=== PATIENT | female | born 1990 | race Caucasian/White ===

== ENCOUNTER 2022-01-29 08:15 | Outpatient (CLI) | payer MEDICAID, SELFPAY ==
--- NOTE | 2022-01-29 08:15 | CRLHL7_ITS ---
For Patients: As a result of the Cures Act, medical imaging exams and procedure reports are released immediately into your electronic medical record. You may view this report before your referring provider. If you have questions, please contact your health care provider. INDICATION: First trimester scan, establish dates. COMPARISON: None. TECHNIQUE: Real-time fraga-scale imaging of the pelvis was performed. FINDINGS: Sonographic imaging demonstrates a single living intrauterine gestation. The embryo demonstrates a regular cardiac rate measuring 169 beats per minute. The embryo`s crown-rump length measurement of 1.8 cm corresponds to a gestational age of 8 weeks 2 days with a sonographic due date of 09/08/2022. There is a normal-appearing yolk sac. There are no gross abnormalities noted within the embryo at this early state of development. The gestational sac has a normal appearance. There is no evidence of a perigestational hemorrhage. The amount of fluid within the sac appears appropriate for gestational age. The cervix is closed. The myometrium appears normal. The ovaries are of normal size. There are no suspicious fluid collections noted in the cul-de-sac. Corpus luteal cyst right ovary. IMPRESSION: Normal first trimester OB ultrasound exam. Gestational age calculated at 8 weeks 2 days with a sonographic due date of 09/08/2022. Dictated by Chu Britt MD @ 01/29/2022 8:53:08 AM (Electronically Signed)
== END 2022-01-29 08:16 | disposition home or self-care (01) ==
LOC: US 08:16
PROVIDERS: Visit Provider Advanced Practice Midwife
DX: Z34.91 Encounter for supervision of normal pregnancy, unspecified, first trimester (principal); Z3A.08 8 weeks gestation of pregnancy
CPT/HCPCS: 76817; 86703; 86803; 86850; 86900; 86901; 87086; 87340

== ENCOUNTER 2022-01-29 09:49 | Outpatient (CLI) | payer MEDICAID, SELFPAY ==
[2022-01-29 12:20] LABS: Hepatitis B Surface Antigen* Negative (Negative)
[2022-01-29 12:31] LABS: HIV 1/2/P24 Combo Screen* Negative (Negative)
[2022-01-29 12:38] LABS: Hepatitis C Virus Antibody* Negative (Negative)
[2022-01-30 12:48] LABS: Rapid Plasma Reagin (RPR) Non Reactive (Non Reactive)
[2022-01-30 17:58] LABS: Rubella Antibody IgG 7.4 IU/mL
== END 2022-01-29 09:50 | disposition home or self-care (01) ==
PROVIDERS: Visit Provider Advanced Practice Midwife
DX: Z34.91 Encounter for supervision of normal pregnancy, unspecified, first trimester (principal)
CPT/HCPCS: 86592; 86703; 86762; 86803; 86850; 86900; 86901; 87086; 87340; 87491; 87591

== ENCOUNTER 2022-02-23 16:46 | Outpatient (CLI) | payer MEDICAID, SELFPAY ==
[2022-02-23 22:08] LABS: Chlamydia DNA Amplified* NOT DETECTED (No Detected); GC DNA Amplified* NOT DETECTED (No Detected)
== END 2022-02-23 16:47 | disposition home or self-care (01) ==
LOC: NFLDREF 16:47
PROVIDERS: Visit Provider Advanced Practice Midwife
DX: Z34.91 Encounter for supervision of normal pregnancy, unspecified, first trimester (principal)
CPT/HCPCS: 87491; 87591

== ENCOUNTER 2022-04-20 07:21 | Outpatient (CLI) | payer MEDICAID, SELFPAY ==
--- NOTE | 2022-04-20 07:15 | CRLHL7_ITS ---
For Patients: As a result of the Century Cures Act, medical imaging exams and procedure reports are released immediately into your electronic medical record. You may view this report before your referring provider. If you have questions, please contact your health care provider. INDICATION: Evaluate anatomy. COMPARISON: None. TECHNIQUE: Real time fraga scale imaging of the fetus was performed as well as color Doppler analysis of the umbilical vessels. FINDINGS: Sonographic imaging demonstrates a single living intrauterine gestation. Fetus demonstrates a regular cardiac rate of 150 beats per minute. Fetus has a vertex orientation and longitudinal lie. The placenta lies anteriorly without evidence of placenta previa. Amniotic fluid volume appears normal. Single deepest vertical pocket: 5.8 cm. The cervix is closed and measures 4.7 cm in length. The composite ultrasound gestational age is calculated at 20 weeks 6 days with an estimated sonographic due date of September 01, 2022. The estimated weight is 415 grams which lies at the greater than the 97th percentile. The following biometric measurements were obtained: Biparietal diameter: 4.68 cm/20 weeks 1 day 57% Head circumference: 18.1 cm/20 weeks 4 days 66% Abdominal circumference: 17.3 cm/22 weeks 1 day 96% Femur length: 3.37 cm/20 weeks 4 days 63% The HC/AC ratio measures: 1.05 range (1.06-1.25) On anatomic survey, there is a normal appearance of the cerebral ventricles, cisterna magna and cerebellum. The nose, lips, and facial profile appear normal. The cervical, thoracic and lumbar spine are well visualized and appear normal. There is a normal four-chamber heart view and the left and right ventricular outflow tracts appear normal. diaphragm, stomach, kidneys and bladder appear normal. There is a normal three-vessel cord and cord insertion site. The four extremities appear normal. IMPRESSION: Normal OB ultrasound exam with concordance of clinical and sonographic dating. No intrinsic abnormalities noted on anatomic survey. Dictated by Delmer Caraballo MD @ 04/20/2022 10:56:33 AM (Electronically Signed)
== END 2022-04-20 07:22 | disposition home or self-care (01) ==
PROVIDERS: Visit Provider Advanced Practice Midwife
DX: Z34.92 Encounter for supervision of normal pregnancy, unspecified, second trimester (principal); Z3A.20 20 weeks gestation of pregnancy
CPT/HCPCS: 76805

== ENCOUNTER 2022-06-13 11:22 | Outpatient (CLI) | payer MEDICAID, SELFPAY ==
[2022-06-15 00:52] LABS: Rapid Plasma Reagin (RPR) Non Reactive (Non Reactive)
== END 2022-06-13 11:23 | disposition home or self-care (01) ==
PROVIDERS: Visit Provider Advanced Practice Midwife
DX: Z34.90 Encounter for supervision of normal pregnancy, unspecified, unspecified trimester (principal)
CPT/HCPCS: 86592

== ENCOUNTER 2022-08-09 10:30 | Outpatient (CLI) | payer MEDICAID, SELFPAY ==
[2022-08-10 12:52] LABS: Strep B DNA Probe NEGATIVE (Negative)
[2022-08-10 12:53] LABS: Strep B Pen/Amox Allergy No
== END 2022-08-09 10:31 | disposition home or self-care (01) ==
LOC: NFLDREF 10:30
PROVIDERS: Visit Provider Advanced Practice Midwife
DX: Z34.93 Encounter for supervision of normal pregnancy, unspecified, third trimester (principal); Z3A.35 35 weeks gestation of pregnancy
CPT/HCPCS: 87081; 87653

== ENCOUNTER 2022-08-29 19:07 | Inpatient (IN) | payer MEDICAID, SELFPAY ==
[2022-08-29] VITALS (18 sets, daily range): BP systolic 113–137; BP diastolic 57–83; PULSE 65–81; RESP 20; BMI 30.5
--- NOTE | 2022-08-29 19:44 | W.PM.LDBA ---
Subjective History of Present Illness Date Seen: 08/29/22 Narrative: Lizzeth is being admitted to Labor and Delivery for active labor, she has a history of fast labors. She noticed contractions today at approximately 1815. She is a 32 year old at 38.5weeks gestation. Her full history and physical was dictated by H&P done 08/17 by Thien Oneal CNM. 1. Hx precipitous deliveries. She may consider an IOL. -IOL scheduled 09/03 2. Anxiety - on Lexapro, increased with (trying to get into therapy). 3. Closely spaced pregnancies (last delivery 05/30/21) 4. Hx macrosomia (9lb, 9lb8oz, and 9lb6oz), delivered without difficulty OB - Problem Based A/P Additional Plan (1) 38 weeks gestation of : Status: Acute (2) Pain during labor: Status: Acute Plan at 38.5 weeks gestation? GBS Negative? Uncomplicated ? ?? PLAN:? 1. Desires water . Consent signed. Hep C negative.? 2. Candidate for analgesia of choice. Planning unmedicated .? 3. Anticipate ? 4. Expectant management at this time.? 5. No IV at this time, intermittent monitoring after initial NST Delivery/Labor/Induction Plan Plan: expectant management OB Exam Physical Exam Vital signs: Pulse BP 77 126/72 08/29/22 19:32 08/29/22 19:32 Narrative: Vitals per EMR? Psychiatric:? Alert and oriented x3? HEENT:? Normocephalic, atraumatic? Neck:? Supple without adenopathy or thyromegaly? Lungs:? Clear to auscultation bilaterally? Heart:? Regular rate and rhythm, no murmur, rub or gallop? Abdomen:? Soft, nontender, and gravid? Extremities:? No edema or erythema? Pelvic:?deferred, pt had SROM and felt pushy immediately? Membrane status:? SROM shortly after arrival presentation:? Vertex FHT:? Moderate Variability.? Positive Accels.? Variable Decels after SROM. Baseline unable to determine.? [place]:? Ctx Q2-3min? Detailed Labor and Delivery Exam Patient Gravid: Yes Contraction intensity: Strong/Firm Fetus (Single) Amniotic Membrane Status: intact Monitor Accelerations: Present Monitor Decelerations: Variable Nursing Home Variability: Moderate (6-25)
--- NOTE | 2022-08-29 19:54 | W.PM.OBVAGDE ---
OB Procedure Vag Delivery Mother Details Mother Details: Lizzeth is a 32 year-old admitted on 08/29/2022 at 1905 at 38 Weeks, 5 Days gestation for active labor.? Cervical exam on admission was deferred with membranes intact in vertex presentation.? Contractions were every 2-3 minutes. Shortly after arrival, she had SROM at 1917 with clear fluid and then immediately felt like pushing. ? heart rate demonstrated an indeterminate baseline with moderate variability, + accelerations, variable decelerations after SROM; a category 2 tracing.?She delivered rapidly 2 minutes after SROM, she desired a waterbirth but did not have time. ? : 5 Para: 5 Weeks Gestation: 38.5 Admission Date: 08/29/22 Additional Details Amniotic Membrane Status: SROM Amniotic Membrane Rupture Date: 08/29/22 Amniotic Membrane Rupture Time: 19:17 Amniotic Membrane Fluid Description: Clear Analgesia/Anesthesia Type: None Waterbirth: No [place]: No Intrapartal Events: Precipitous Labor <3 Hrs Labor Onset: 18:15 Complete: 19:17 (presumed when pushing) Pushin:17 Heart: heart tones during second stage were likely Category 2, indeterminate baseline with moderate variability and variable decels after SROM. Delivery Details Delivery Date: 08/29/22 Delivery Time: 19:19 Route of delivery: Infant Gender: Male Infant Viability: Alive; Heart Rate Present Position at Delivery: OA Delivery Details: Delivered via spontaneous vaginal delivery. Infant was placed on maternal abdomen.? Cord was clamped and cut after a 2 minute delay. Nose and mouth were bulb suctioned. Brought to the infant warmer for stimulation.? Infant weight pending. 1 Minute Interval Total Score: 7 5 Minute Interval Total Score: 9 Additional Details Shoulder Dystocia: No Placenta Delivery Time: 19:24 Placental Delivery Description: Spontaneous (marginal cord insertion, trailing membranes) Procedure Done: Global Blood Loss: 25 Laceration: Perineal - 1st Degree Blood Loss Measurement Type: QBL Bakri Used: No Sponge/Need Count Correct: Yes Cord Vessel Description: 3 Vessels, Nuchal Cord (X1), Reduced and Delivered through Event Summary Status: Mother and infant were stable after delivery. Disposition: floor
[2022-08-29] MEDS: IBUPROFEN 600 MG TABLET PO (20:03)
[2022-08-29 21:41] LABS: SARS PCR* Negative SARS-CoV-2 (Negative)
[2022-08-30] MEDS: ACETAMINOPHEN 500 MG TABLET 1000 MG PO ×2 (00:05→07:30)
[2022-08-30 00:06] VITALS: BP 104/66; PULSE 69; RESP 20; TEMP 36.6; O2SAT 98
[2022-08-30 04:00] VITALS: BP 111/69; PULSE 72; RESP 20; TEMP 36.5
[2022-08-30] MEDS: IBUPROFEN 600 MG TABLET PO ×2 (04:05→15:47)
[2022-08-30 07:20] VITALS: BP 122/71; PULSE 67; RESP 16; TEMP 36.4; O2SAT 98
--- NOTE | 2022-08-30 07:23 | P.DS_ITS ---
DS: Providers Provider Time Seen by Provider: : Date Seen: 08/30/22 Date of admission: 08/29/22 19:07 Primary care physician: Not a Local Provider Admitting Clinician: Avani Oneal CNM Attending Physician on discharge: Avani Oneal CNM Date of Discharge: 08/30/22 DS: Diagnosis Discharge Diagnosis (1) NVD (normal vaginal delivery): Status: Acute (2) Lactating mother: Status: Acute Exam Narrative: Exam Narrative: VSS, afebrile GENERAL APPEARANCE: ?normal affect, alert, no distress MOOD: ?appropriate HEENT: normocephalic, neck supple, full ROM CHEST: ?Symmetrical chest wall movement. ?Normal respiratory effort. ?Clear to auscultation HEART: ?regular rate and rhythm ABDOMEN: ?soft, non-tender. Uterine fundus is firm, 2 above Umbilicus, Midline and is appropriate for the stage of recovery. ?Bowel sounds present. PERINEUM: ?mild edema of the perineum, there is a 1st degree laceration that is healing well. EXTREMITIES: ?normal and no edema Const: Vital Signs, click to edit/add: Vital Signs - 24 hr 08/29/22 19:13 08/29/22 19:32 08/29/22 19:32 Temperature Pulse Rate 81 77 Pulse Rate [Left B lood Pressure Cuff ] Respiratory Rate Blood Pressure 122/63 126/72 Blood Pressure [Le ft Arm] Pulse [facility] 08/[facility] 19:46 08/29/22 19:46 08/29/22 20:01 Temperature Pulse Rate 70 Pulse Rate [Left B lood Pressure Cuff ] Respiratory Rate Blood Pressure 128/60 113/57 L Blood Pressure [Le ft Arm] Pulse Oximetry [facility] 08[facility]29/22 20:01 08/29/22 20:16 08/29/22 20:16 Temperature Pulse Rate 67 71 Pulse Rate [Left B lood Pressure Cuff ] Respiratory Rate Blood Pressure 118/62 Blood Pressure [Le ft Arm] Pulse [facility]ximetry [facility] 08/29/22 20:31 08/29/22 20:31 08/29/22 20:46 Temperature Pulse Rate 71 Pulse Rate [Left B lood Pressure Cuff ] Respiratory Rate Blood Pressure 125/64 118/62 Blood Pressure [Le ft Arm] Pulse Oximetry [facility] 08/29/22 20:46 08/29/22 21:01 08/29/22 21:01 Temperature Pulse Rate 69 65 Pulse Rate [Left B lood Pressure Cuff ] Respiratory Rate Blood Pressure 135/81 Blood Pressure [Le ft Arm] Pulse Oximetry Oxygen Delivery Me thod 08/29/22 21:16 08/29/22 21:16 08/29/22 21:31 Temperature Pulse Rate 65 Pulse Rate [Left B lood Pressure Cuff ] Respiratory Rate Blood Pressure 137/83 123/63 Blood Pressure [Le ft Arm] Pulse Oximetry Oxygen Delivery Ny thod 08/29/22 21:31 08/29/22 19:20 08/29/22 19:35 Temperature Pulse Rate 65 Pulse Rate [Left B lood Pressure Cuff ] Respiratory Rate 20 20 Blood Pressure Blood Pressure [Le ft Arm] Pulse Oximetry Oxygen Delivery Ny thod 08/29/22 20:35 08/29/22 19:50 08/29/22 20:05 Temperature Pulse Rate Pulse Rate [Left B lood Pressure Cuff ] Respiratory Rate 20 20 20 Blood Pressure Blood Pressure [Le ft Arm] Pulse [facility]ximetry [facility] 08/29/22 20:20 08/29/22 20:50 08/29/22 21:05 Temperature Pulse Rate Pulse Rate [Left B lood Pressure Cuff ] Respiratory Rate 20 20 20 Blood Pressure Blood Pressure [Le ft Arm] Pulse Oximetry Oxygen Delivery Ny thod 08/30/22 00:06 08/30/22 04:00 Temperature 97.8 F 97.7 F Pulse Rate Pulse Rate [Left B lood Pressure Cuff ] 69 72 Respiratory Rate 20 20 Blood Pressure Blood Pressure [Le ft Arm] 104/66 111/69 Pulse Oximetry 98 [facility] Room Air Documenting provider has reviewed patient's vital signs: yes OB - DS: Summary Hospital Course Hospital Course: Lorna is a 32 y.o. G 5 P 5 who was admitted to L & D for active labor. ?She had an uncomplicated precipitous NVD. The patient feels well. ?The pain is well controlled with current medications. ?She has no new complaints. ?She is breast feeding and reports things are going well.? the patient has done well.? Vitals have been stable.? She has remained afebrile.? Has a good appetite, is tolerating a general diet. ?She is voiding without difficulty.? She is passing gas and has not had a bowel movement.? She is ambulating and denies any dizziness.? Has Small amount of rubra lochia. She is planning NFP & diaphragm for prevention. Problems: none plan: Discharge home with baby. Follow up in 2 weeks and 6 weeks. , may follow up with if needed Peripartum Data Infant delivery method: Vaginal Laceration description: Perineal - 1st Degree [place] Infant Gender: Male Status at Discharge Functional status at discharge: independent ambulation Overall status at discharge: patient is progressing back to baseline Time Spent with Patient Time attestation: Total time spent providing and/or coordinating discharge services: Time spent: Less than 30 minutes Discharge Plan Discharge Disposition: Home, Self-Care Date of Admission: 08/29/22 19:07 Attending Provider on Discharge: Sabrina Braun Primary Care Provider: Provider,Not a Local Condition: Stable Anticipated Discharge Date/Time: 08/30/22 20:27 Discharge Medications: New docusate sodium 100 mg Capsule 100 mg PO BID PRNQty: 100 0RF Rx Instructions: Take 1 cap 1-2 times a day as needed for constipation ibuprofen 600 mg Tablet 600 mg PO Q6H PRNQty: 60 0RF Continued prenat.vits,sejal,[id number] Tablet 1 tab PO QDAY escitalopram oxalate 20 mg tablet See Rx Instructions .ROUTE .COMPLEX Qty: 90 2RF Dose Instruction: TAKE ONE TABLET BY MOUTH DAILY Rx Instructions: TAKE ONE TABLET BY MOUTH DAILY Discontinued omeprazole magnesium [Acid Naval [employer] (omeprazole)] 20 mg capsule,delayed release(DR/EC) 20 mg PO QDAY MDD 2 Qty: 30 4RF Discharge Orders: Discharge Order (Routine); Ordered 08/30/22 Ordered By: Sabrina Braun Patient Education: OB Over the Counter Medication Information, OB Vaginal/Breast Feeding Additional Instructions: Follow up in 2 weeks and 6 weeks. Activity Level: Activity as Tolerated Discharge Diet: Regular Follow Up Appointments: Provider,Not a Local [Primary Care Provider] - Forms: to be Info Instructions
[2022-08-30] MEDS: DOCUSATE SODIUM 100 MG CAPSULE PO (07:30)
[2022-08-30 11:53] VITALS: BP 102/63; PULSE 71; RESP 16; TEMP 36.6; O2SAT 96
[2022-08-30 15:40] VITALS: BP 108/69; PULSE 73; RESP 16; TEMP 36.4; O2SAT 96
[2022-08-30 19:42] VITALS: BP 116/75; PULSE 82; RESP 16; TEMP 36.6; O2SAT 96
== END 2022-08-30 20:48 | disposition home or self-care (01) | DRG 807 ==
LOC: OB OUT 09-10 16:00
PROVIDERS: Admitting Provider Advanced Practice Midwife; Visit Provider Advanced Practice Midwife
DX: O99.344 Other mental disorders complicating childbirth (principal); Z37.0 Single live birth; F41.9 Anxiety disorder, unspecified; O70.0 First degree perineal laceration during delivery; Z3A.38 38 weeks gestation of pregnancy
CPT/HCPCS: 85025; 86850; 86900; 86901; 87635; 99213; A9270

== ENCOUNTER 2023-03-25 16:26 | Outpatient (CLI) | payer MEDICAID, SELFPAY | END 2023-03-25 16:27 | disposition home or self-care (01) | LOC: NFLDREF 03-28 15:33 | PROVIDERS: Visit Provider Advanced Practice Midwife | DX: Z01.84 Encounter for antibody response examination (principal) | CPT/HCPCS: 86787 ==

== ENCOUNTER 2023-05-09 11:49 | Outpatient (CLI) | payer MEDICAID, SELFPAY | END 2023-05-09 11:50 | disposition home or self-care (01) | LOC: NFLDREF 14:56 | PROVIDERS: Visit Provider Advanced Practice Midwife | DX: Z13.29 Encounter for screening for other suspected endocrine disorder (principal); Z13.220 Encounter for screening for lipoid disorders | CPT/HCPCS: 80061; 84443 ==

== ENCOUNTER 2023-10-08 16:09 | Outpatient (CLI) | payer MEDICAID, SELFPAY ==
--- NOTE | 2023-10-08 16:00 | US_ITS ---
Patient: FREDDIE ELY Facility:?[facility] Patient ID:?[id number] Site Patient ID:?[id number]. Site :?[id number] Study:?US-OB Pelvis TV OB<14wks-10/08/2023 5:10:05 PM Ordering Physician:Monie Haas Final Report: OB ULTRASOUND INDICATION: Ultrasound for dates and viability. LMP: 08/07/2023. MELISA by LMP: 05/13/2024. GA: 8 w, 6 d. Previous US: No. CRL: 2.05 cm. 8 w 5 d. MELISA: 05/14/2024. FHR: 167 BPM. Gestational sac: 4.00 cm. Appears within normal limits. Yolk sac: 4.02 mm. Appears within normal limits. Right ovary: Within normal limits. 4.9 x 2.3 x 2.6 cm. Left ovary: Within normal limits. 2.6 x 1.4 x 1.7 cm. CL. IMPRESSION: 1. Single viable intrauterine . 2. Measurements are consistent with dates. 3. Large subchorionic hemorrhage involving approximately half of the gestational sac and measuring 5.6 x 4.1 x 1.4 cm. Kurt Hebert M.D. Body/Diagnostic Radiologist [email or web address] INGRID/mattie D& Transcribed: 10:15 a.sailaja phelps/Dictated by: Kurt Hebert MD @ 10/09/2023 9:30:00 AM Signed by:?Kurt Hebert MD @10/09/2023 10:46:18 AM (Electronic Signature)
== END 2023-10-08 16:10 | disposition home or self-care (01) ==
LOC: US 16:10
PROVIDERS: Visit Provider Registered Nurse
DX: Z34.91 Encounter for supervision of normal pregnancy, unspecified, first trimester (principal); O20.9 Hemorrhage in early pregnancy, unspecified; Z3A.01 Less than 8 weeks gestation of pregnancy
CPT/HCPCS: 76817; 86703; 86706; 86803; 86850; 86900; 86901; 87086; 87340; 87491; 87591

== ENCOUNTER 2023-10-08 17:37 | Outpatient (CLI) | payer MEDICAID, SELFPAY ==
[2023-10-08 21:38] LABS: Chlamydia DNA Amplified* NOT DETECTED (No Detected); GC DNA Amplified* NOT DETECTED (No Detected)
== END 2023-10-08 17:38 | disposition home or self-care (01) ==
PROVIDERS: Visit Provider Registered Nurse
DX: Z34.91 Encounter for supervision of normal pregnancy, unspecified, first trimester (principal)
CPT/HCPCS: 86592; 86703; 86704; 86706; 86762; 86787; 86803; 86850; 86900; 86901; 87086; 87340; 87491; 87591

== ENCOUNTER 2023-11-06 10:44 | Outpatient (CLI) | payer MEDICAID, SELFPAY | END 2023-11-06 10:45 | disposition home or self-care (01) | LOC: LKVREF 10:45 | PROVIDERS: Visit Provider Advanced Practice Midwife | DX: O26.811 Pregnancy related exhaustion and fatigue, first trimester (principal) | CPT/HCPCS: 82728 ==

== ENCOUNTER 2023-12-30 12:17 | Outpatient (CLI) | payer MEDICAID, SELFPAY ==
--- NOTE | 2023-12-30 12:15 | CRLHL7_ITS ---
For Patients: As a result of the Century Cures Act, medical imaging exams and procedure reports are released immediately into your electronic medical record. You may view this report before your referring provider. If you have questions, please contact your health care provider. INDICATION: Evaluate anatomy. COMPARISON: 24 TECHNIQUE: Real time fraga scale imaging of the fetus was performed as well as color Doppler analysis of the umbilical vessels. FINDINGS: Sonographic imaging demonstrates a single living intrauterine gestation. Fetus demonstrates a regular cardiac rate of 142 beats per minute. Fetus has a variable position. The placenta lies anteriorly without evidence of placenta previa. Edge of the placenta located 4.5 cm from the internal cervical os. Amniotic fluid volume appears normal. Single deepest vertical pocket: 4.5 cm. The cervix is closed and measures 4.0 cm in length. The composite ultrasound gestational age is calculated at 22 weeks 0 days with an estimated sonographic due date of 05/04/2024. The estimated weight is 452 grams which lies at the 94th %. The following biometric measurements were obtained: Biparietal diameter: 5.3 cm/22 weeks 1 day 92nd% Head circumference: 19.9 cm/22 weeks 0 days 91st% Abdominal circumference: 17.2 cm/22 weeks 1 day 86th% Femur length: 3.6 cm/21 weeks 2 days 60th% The HC/AC ratio measures: 1.15 range (1.06-1.23) On anatomic survey, there is a normal appearance of the cerebral ventricles, cavum septi pellucidi, cisterna magna and cerebellum. The nose, lips, and facial profile appear normal. The cervical, thoracic and lumbar spine are well visualized and appear normal. There is a normal four-chamber heart view and the left and right ventricular outflow tracts appear normal. The diaphragm and stomach appear normal. The kidneys and bladder also appear normal. There is a normal three-vessel cord and cord insertion site. The four extremities appear normal. IMPRESSION: Sonographic gestational age 22 weeks 0 days and sonographic due date 05/04/2024. Sonographic age 9 days ahead of the clinical age. Estimated weight 94th percentile. Abdominal circumference 86th percentile. No intrinsic abnormalities noted on anatomic survey. Dictated by Chu Britt MD @ 12/30/2023 1:39:14 PM (Electronically Signed)
== END 2023-12-30 12:18 | disposition home or self-care (01) ==
LOC: US 12:18
PROVIDERS: Visit Provider Advanced Practice Midwife
DX: Z34.92 Encounter for supervision of normal pregnancy, unspecified, second trimester (principal); Z3A.22 22 weeks gestation of pregnancy
CPT/HCPCS: 76805

== ENCOUNTER 2024-02-19 10:42 | Outpatient (CLI) | payer MEDICAID, SELFPAY | END 2024-02-19 10:43 | disposition home or self-care (01) | PROVIDERS: Visit Provider Advanced Practice Midwife | DX: Z34.83 Encounter for supervision of other normal pregnancy, third trimester (principal) | CPT/HCPCS: 82728; 86592 ==

== ENCOUNTER 2024-03-04 08:30 | Outpatient (RCR) | payer MEDICAID, SELFPAY ==
--- NOTE | 2024-02-21 09:33 | URNOTE ---
Prior auth is not required for Infed ([id number]) per [facility]
[2024-03-04 08:49] VITALS: BP 108/65; PULSE 87; RESP 16; TEMP 35.9; O2SAT 99
[2024-03-04] MEDS: IRON DEXTRAN COMPLEX 25 MG in 0.9 % SODIUM CHLORIDE 100 ml 100 ML 402 MG IVPB (09:14)
[2024-03-04 09:39] VITALS: BP 95/58; PULSE 76; RESP 16; TEMP 36.4; O2SAT 97
[2024-03-04] MEDS: IRON DEXTRAN COMPLEX 975 MG in 0.9 % SODIUM CHLORIDE 250 ml 250 ML 269.5 MG IVPB (10:29)
[2024-03-04 11:35] VITALS: BP 92/55; PULSE 64; RESP 16; TEMP 36.8; O2SAT 98
[2024-03-04 12:17] VITALS: BP 109/63; PULSE 74; RESP 16; O2SAT 97
== END 2024-08-23 23:59 | disposition home or self-care (01) ==
LOC: CCIC 08:30
PROVIDERS: Visit Provider Midwife
DX: O99.019 Anemia complicating pregnancy, unspecified trimester (principal); D50.9 Iron deficiency anemia, unspecified
CPT/HCPCS: 96365; 96376; J1750; J7050

== ENCOUNTER 2024-04-14 10:30 | Outpatient (CLI) | payer MEDICAID, SELFPAY ==
--- NOTE | 2024-04-14 10:30 | CRLHL7_ITS ---
For Patients: As a result of the Century Cures Act, medical imaging exams and procedure reports are released immediately into your electronic medical record. You may view this report before your referring provider. If you have questions, please contact your health care provider. HISTORY: Large for dates. COMPARISON: Ob ultrasound report from 12/30/2023. TECHNIQUE: Ultrasound examination of the is performed with transabdominal technique. A biophysical profile score was also obtained. FINDINGS: A single intrauterine gestation is seen in cephalic presentation with regular cardiac activity at 126 beats per minute. The placenta is anterior and is free of the cervical os. The placental grade is 1 and the amniotic fluid volume is increased. Single deepest vertical pocket: Increased at 12.4 cm. GABBIE increased at 38.8 cm. Findings of polyhydramnios. BPD: 9.2 cm 37 weeks 3 days HC: 35.0 cm 40 weeks 5 days AC: 36.4 cm 40 weeks 2 days. Greater than the 97th percentile FL: 6.8 cm 35 weeks 1 day The estimated age by ultrasound is 38 weeks 3 days, with an estimated date of delivery of 04/25/2024. This represents a prominent increase in rate of growth compared with the clinical age of 35 weeks 6 days. The estimated date of delivery has advanced by 18 days compared to the clinical age and by 9 days compared to the previous ultrasound. The FL/AC ratio of 18.8 is below bottom normal of 20.0. The HC/AC ratio is normal. The estimated weight of 3600 grams is greater than the 97th percentile based on the clinical dates. Biophysical profile score is 8/8 with no points off. IMPRESSION: 1. Single intrauterine gestation in cephalic presentation with regular cardiac activity. 2. Estimated gestational age is 38 weeks 3 days. 3. There has been an increase in rate of growth compared to the clinical dates and the previous ultrasound. The estimated date of delivery is advanced by 9 days compared to the previous ultrasound. 4. Estimated weight of 3600 grams is greater than the 97th percentile based on the clinical dates. 5. New polyhydramnios. 6. Biophysical profile score 8/8. Dictated by Herbert South MD @ 04/14/2024 10:40:56 PM (Electronically Signed)
== END 2024-04-14 10:31 | disposition home or self-care (01) ==
LOC: US 10:31
PROVIDERS: Visit Provider Advanced Practice Midwife
DX: O36.63X0 Maternal care for excessive fetal growth, third trimester, not applicable or unspecified (principal); O40.3XX0 Polyhydramnios, third trimester, not applicable or unspecified; Z3A.38 38 weeks gestation of pregnancy
CPT/HCPCS: 76816; 76819

== ENCOUNTER 2024-04-14 12:05 | Outpatient (CLI) | payer MEDICAID, SELFPAY | END 2024-04-14 12:06 | disposition home or self-care (01) | LOC: NFLDREF 04-16 11:16 | PROVIDERS: Visit Provider Advanced Practice Midwife | DX: Z34.93 Encounter for supervision of normal pregnancy, unspecified, third trimester (principal); O40.3XX0 Polyhydramnios, third trimester, not applicable or unspecified; O36.63X0 Maternal care for excessive fetal growth, third trimester, not applicable or unspecified; Z3A.35 35 weeks gestation of pregnancy | CPT/HCPCS: 87081; 87653 ==